=== PATIENT | female | born 1950 | race Caucasian/White ===

== ENCOUNTER → 2021-05-25 | Outpatient (CLI) | payer MEDICARE, OTHER | LOC: KOH-I 12:00 | DX: R10.9 Unspecified abdominal pain (principal); N13.2 Hydronephrosis with renal and ureteral calculous obstruction | CPT/HCPCS: 74176 ==

== ENCOUNTER → 2021-07-14 | Outpatient (CLI) | payer MEDICARE, OTHER | LOC: KOH-I 10:37 | DX: N13.30 Unspecified hydronephrosis (principal); N26.1 Atrophy of kidney (terminal) | CPT/HCPCS: 76775 ==